=== PATIENT | male | born 1980 | race Caucasian/White ===

== ENCOUNTER 2016-12-01 08:28 | Emergency (ER) | payer BC ==
[2016-12-01 08:32] VITALS: BP 122/73; PULSE 66; RESP 20; TEMP 97.7; O2SAT 96
[2016-12-01] MEDS ORDERED: Naphazoline-Pheniramine Ophth Soln OP STA (08:56)
--- NOTE | 2016-12-01 09:00 | C.PDOC ---
History Of Present Illness Patient is a 36 y/o male that presents to the ED for evaluation of itchiness to bilateral eyes, and watery eyes since this morning. 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 Patient denies any exposure to dust, and states he didn't start any work at his job. Patient states that his lower eyelids were initially swollen but has resolved now. Otherwise, denies any vision change, eye discharge, fever, chills, or any other associated symptoms at this time. Time Seen by Provider: 12/01/16 08:55 Chief Complaint (Nursing): Eye Problem History Per: Patient History/Exam Limitations: no limitations Onset/Duration Of Symptoms: Hrs Current Symptoms Are (Timing): Still Present Injury To Eye?: No Associated Symptoms: Itching. denies: Decreased Vision, FB Sensation, Discharge From Eye Recent travel outside of the [place]: No Additional History Per: Patient Past Medical History Reviewed: Historical Data, Nursing Documentation, Vital Signs Vital Signs: Last Vital Signs Temp 97.7 F 12/01/16 08:29 Pulse 66 12/01/16 08:29 Resp 20 12/01/16 08:29 BP 122/73 12/01/16 08:29 Pulse Ox 96 12/01/16 11:29 - Medical History PMH: Asthma Family History: States: Unknown Family Hx - Social History Hx Alcohol Use: Yes Hx Substance Use: No - Immunization History Hx Tetanus Toxoid Vaccination: Yes Hx Influenza Vaccination: No Hx Pneumococcal Vaccination: No Review Of Systems Except As Marked, All Systems Reviewed And Found Negative. Constitutional: Negative for: Fever, Chills Eyes: Positive for: Other (itchiness and watery eyes). Negative for: Vision Change, Conjunctivae Inflammation, Eyelid Inflammation Physical Exam - Physical Exam Appears: Non-toxic, No Acute Distress Skin: Normal Color, Warm, Dry Head: Atraumatic, Normacephalic Eye(s): bilateral: PERRL, EOMI, Other (teary eyes, conjunctival erythema, no visual acuity changes) Neurological/Psych: Oriented x3, Normal Speech, Normal Cognition ED Course And Treatment O2 Sat by Pulse Oximetry: 96 (on RA) Pulse Ox Interpretation: Normal Progress Note: Patient was treated with Naphcon-A opht in the ER. Patient in being discharged home with instructions to follow up with footwear sales associate in 1- 2 days. Disposition - Disposition Referrals: Warren Cr MD [Staff Provider] - Disposition: HOME/ ROUTINE Disposition Time: 09:00 Condition: STABLE Additional Instructions: Follow up with PMD and footwear sales associate within 1-2 days. Return to ED if feel worse. Instructions: Conjunctivitis (ED) - Clinical Impression Clinical Impression: Allergic conjunctivitis - PA / MANAGER SUPPORT / Resident Statement MD/DO has reviewed & agrees with the documentation as recorded. - Scribe Statement The provider has reviewed the documentation as recorded by the Scribshelly Cheng All medical record entries made by the Darnell were at my direction and personally dictated by me. I have reviewed the chart and agree that the record accurately reflects my personal performance of the history, physical exam, medical decision making, and the department course for this patient. I have also personally directed, reviewed, and agree with the discharge instructions and disposition.
== END 2016-12-01 09:27 | disposition home or self-care (01) ==
LOC: C.ER 08:28
DX: H10.13 Acute atopic conjunctivitis, bilateral (principal)

== ENCOUNTER 2018-10-24 15:51 | Emergency (ER) | payer BC ==
--- NOTE | 2018-10-24 16:18 | C.PDOC ---
History Of Present Illness poor historian "EVERYTHING HURTS". VOMIT, "EVERYTHING HURTS", CP, DIZZY ONSET 1400. TAKING SOMA COMPOUND FOR BACK PAIN S/P FALL 10/19 THIS MORNING. USED MARIJUANA AFTERWARDS. NO ABD PAIN. ROS LIMITED EXAM MILD DIST HEENT NO NYSTAGMUS ABD NEG CV RRR NARD NEURO INTACT Time Seen by Provider: 10/24/18 16:16 Chief Complaint (Nursing): Ingestion, Accidental History Per: Patient History/Exam Limitations: other (pt is poor historian) Onset/Duration Of Symptoms: Days Current Symptoms Are (Timing): Still Present Severity: Moderate Past Medical History Reviewed: Historical Data, Nursing Documentation, Vital Signs Vital Signs: Last Vital Signs Temp 98.6 F 10/24/18 16:01 Pulse 106 H 10/24/18 16:01 Resp 18 10/24/18 16:01 BP 144/94 H 10/24/18 16:01 Pulse Ox 96 10/24/18 16:01 Primary Care Provider: Angel Fox Medical History PMH: Asthma Surgical History: No Surg Hx Family History: States: No Known Family Hx - Social History Hx Alcohol Use: Yes Hx Substance Use: No - Immunization History Hx Tetanus Toxoid Vaccination: Yes Hx Influenza Vaccination: No Hx Pneumococcal Vaccination: No Review Of Systems Constitutional: Negative for: Fever, Chills Cardiovascular: Positive for: Chest Pain Gastrointestinal: Positive for: Vomiting. Negative for: Abdominal Pain Neurological: Positive for: Dizziness Physical Exam - Physical Exam Appears: Other (mild distress) Skin: Normal Color, Warm, Dry Head: Atraumatic, Normacephalic Eye(s): bilateral: PERRL, EOMI, Other (no nystagmus) Neck: Supple Chest: Symmetrical Cardiovascular: Rhythm Regular (RRR) Respiratory: Other (NARD) Gastrointestinal/Abdominal: Soft, No Tenderness, No Guarding, No Rebound Neurological/Psych: Oriented x3, Normal Speech ED Course And Treatment - Laboratory Results Result Diagrams: 10/24/18 16:54 10/24/18 16:54 ECG: Interpreted By Me ECG Rhythm: Sinus Rhythm ECG Interpretation: Normal Rate From EC O2 Sat by Pulse Oximetry: 96 (RA) Pulse Ox Interpretation: Normal Progress - Re-Evaluation Re-evaluation Note: 10/24/18 17:59 FEELS BETTER/ IVF IN PROGRESS. WILL DOSE K+. ADVISED SKIP DOSE TODAY AND TOMORROW. CONSIDER NSAIDS, TYLENOL NEEDED 10/24/18 17:59 - Data Reviewed Data Reviewed: Lab, EKG, Old records Disposition Counseled Patient/Family Regarding: Studies Performed, Diagnosis, Need For Followup - Disposition Referrals: YOUR,PMD [Other] Disposition: HOME/ ROUTINE Disposition Time: 19:00 Condition: IMPROVED Additional Instructions: LIMIT DOSE SOMA. CONSIDER MOTRIN AND/OR TYLENOL. Prescriptions: Ibuprofen [Motrin Tab] 800 mg PO Q6 #30 tab Instructions: Hypokalemia (DC), Contusion (DC) Forms: [employer] [facility] (Yoruba), Work Excuse - Clinical Impression Clinical Impression: Medication reaction, Hypokalemia - Scribe Statement The provider has reviewed the documentation as recorded by the Darnell Amaya Provider Attestation: All medical record entries made by the Corinnaibe were at my direction and personally dictated by me. I have reviewed the chart and agree that the record accurately reflects my personal performance of the history, physical exam, medical decision making, and the department course for this patient. I have also personally directed, reviewed, and agree with the discharge instructions and disposition.
[2018-10-24] MEDS ORDERED: Sodium Chloride 0.9% 1,000 ML IV ONE (16:43)
[2018-10-24 17:05] LABS: BASO # 0.1 K/uL (0.0-0.2); BASO % 0.7 % (0.0-2.0); EOS # 0.3 K/uL (0.0-0.7); EOS % 2.5 % (0.0-4.0); HEMOGLOBIN 16.2 g/dL (12.0-18.0); LYMPH # 2.8 K/uL (1.0-4.3); LYMPH % 21.7 % (20.0-40.0); MEAN CELL VOLUME 87.9 fL (80.0-94.0); MEAN CORPUSCULAR HEMOGLOBIN 29.2 pg (27.0-31.0); MEAN CORPUSCULAR HGB CONC 33.3 g/dL (33.0-37.0); MEAN PLATELET VOLUME 8.5 fL (7.2-11.7); MONO # 0.9 K/uL (0.0-0.8); MONO % 7.3 % (0.0-10.0); NEUT # 8.7 K/uL (1.8-7.0); NEUT % 67.8 % (50.0-75.0); NRBC % 0.2 % (0.0-2.0); RBC 5.53 Mil/uL (4.40-5.90); RED CELL DISTRIBUTION WIDTH 13.1 % (11.5-14.5); WHITE BLOOD COUNT 12.8 K/uL (4.8-10.8)
[2018-10-24 17:23] LABS: ALB/GLOB RATIO 1.3 (1.0-2.1); ALBUMIN 4.6 g/dL (3.5-5.0); ALT/SGPT 29 U/L (21-72); AST/SGOT 29 U/L (17-59); BLOOD UREA NITROGEN 15 mg/dL (9-20); GFR NON-AFRICAN AMERICAN > 60
[2018-10-24] MEDS ORDERED: Potassium Chloride 20 mEq/15 ml LIQ UD PO STA (17:46)
[2018-10-24 19:48] VITALS: BP 129/69; PULSE 92; RESP 20; TEMP 97.9; O2SAT 95
== END 2018-10-24 19:46 | disposition home or self-care (01) ==
LOC: C.ER 15:51
DX: R11.10 Vomiting, unspecified (principal); T50.995A Adverse effect of other drugs, medicaments and biological substances, initial encounter; E87.6 Hypokalemia
CPT/HCPCS: 80053; 84484; 85025; 96361; 96374; 96375; 99282; J1885; J2405; J3480; J7030